=== PATIENT | male | born 1965 | race Caucasian/White ===

== ENCOUNTER 2020-01-26 07:02 | Day surgery (SDC) | payer OTHER ==
[2020-01-26] MEDS ORDERED: PROPOFOL INJ 200 MG/20 ML VIAL IV ONE (07:40)
[2020-01-26 08:53] VITALS: BP 106/72
--- NOTE | 2020-01-26 11:34 | Operative Report ---
Operative Report DATE OF SURGERY: 01/26/20 Operative Report: The risk, benefits and alternatives of the procedure including the risk of bleeding, perforation requiring surgery have been explained to the patient in detail and informed consent has been obtained. Patient is placed in the left, lateral decubital position. Timeout was called. Propofol medication is administered. Rectal examination is done which did not reveal any masses, tears or fissures. An Olympus videoscope was introduced into the patient's rectum. The scope was then carefully advanced all the way to the cecum. The cecum was identified by the usual anatomical landmarks including the ileocecal valve as well as the appendiceal office. Photodocumentation was obtained. Scope was then sequentially pulled back throughout the various segments of the colon. Retroflexion maneuver is performed. PREOPERATIVE DIAGNOSIS: Colorectal cancer screening POSTOPERATIVE DIAGNOSIS: And almost obstructive mass lesion in the sigmoid colon status post biopsy status post tattoo with submucosal Nury ink injection. Internal hemorrhoids. Biopsies obtained. Patient likely has colorectal cancer. Will need surgical evaluation OPERATION: Colonoscopy with submucosal injection. Colonoscopy with biopsy SURGEON: MELISSA CRISOSTOMO ANESTHESIA: LMAC TISSUE REMOVED OR ALTERED: As noted above. COMPLICATIONS: None. ESTIMATED BLOOD LOSS: None. INTRAOPERATIVE FINDINGS: As noted above. PROCEDURE: Patient tolerated the procedure well. No immediate postprocedure complications are noted. Patient is discharged in good condition. Discharge date 01/26/2020. Discharge diet: Regular. Discharge activity: Regular. Will need surgical referral. We will contact patient once biopsy is available. I will speak with Dr. Davila.
== END 2020-01-26 08:52 | disposition home or self-care (01) ==
LOC: END 07:02
PROVIDERS: ATTEND Internal Medicine Gastroenterology
DX: Z12.11 Encounter for screening for malignant neoplasm of colon (principal); C18.7 Malignant neoplasm of sigmoid colon; K64.8 Other hemorrhoids; F17.210 Nicotine dependence, cigarettes, uncomplicated
CPT/HCPCS: 45380; 45381; 88305 ×2; 00812; J2704; 812

== ENCOUNTER → 2020-02-05 | Outpatient (CLI) | payer OTHER ==
--- NOTE | 2020-02-05 15:57 | RADIOLOGY REPORT (SQ) ---
EXAM DESCRIPTION: CT CHEST WITH COMPLETED DATE/TIME: 02/05/2020 3:47 pm REASON FOR STUDY: C18.9 MALIGNANT NEOPLASM OF COLON, UNSPECIFIED, R63.4 ABNORMAL WEIGHT LOSS C18.9 MALIGNANT NEOPLASM OF COLON, UNSPECIFIED R63.4 ABNORMAL WEIGHT LOSS COMPARISON: None. TECHNIQUE: CT scan of the chest performed using helical scanning technique with dynamic intravenous contrast injection. Images reviewed with lung, soft tissue and bone windows. Reconstructed coronal and sagittal MPR and MIP images reviewed. All images stored on PACS. All CT scanners at this facility use dose modulation, iterative reconstruction, and/or weight based d osing when appropriate to reduce radiation dose to as low as reasonably achievable (ALARA). [facility]: Dose Right [facility]: CareDose [facility]: Dose Right [facility]: Teradose 4D [facility]: Datahero CONTRAST TYPE AND DOSE: See separate report of the same date. RENAL FUNCTION: See separate report. RADIATION DOSE: CT Rad equipment meets quality standard of care and radiation dose reduction techniq ues were employed. CTDIvol: 5.1 - 5.4 mGy. DLP: 1214 mGy-cm. . LIMITATIONS: None. FINDINGS: LUNGS AND PLEURA: No opacities, nodules, masses. No pneumothorax. No effusions. HILAR AND MEDIASTINAL STRUCTURES: No identified masses or abnormal nodes. HEART AND VASCULAR STRUCTURES: No aneurysm or dissection. No central pulmonary emboli. No pericardi al effusion. HARDWARE: None in the chest. UPPER ABDOMEN: See separate report of the CT of the abdomen. THYROID AND OTHER SOFT TISSUES: No masses. No adenopathy. BONES: No significant finding. OTHER: No other significant finding. IMPRESSION: No evidence of metastatic disease. TECHNICAL DOCUMENTATION: JOB ID: [id number] Quality ID # [id number]: Final reports with documentation of one or more dose reduction techniques (e.g., Au tomated exposure control, adjustment of the mA and/or kV according to patient size, use of iterative reconstruction technique) 2010 [employer]- All Rights Reserved Reading location - IP/workstation name: [email or web address]
--- NOTE | 2020-02-05 16:10 | RADIOLOGY REPORT (SQ) ---
EXAM DESCRIPTION: CT ABD/PELVIS WITH IV ONLY COMPLETED DATE/TIME: 02/05/2020 3:47 pm REASON FOR STUDY: C18.9 MALIGNANT NEOPLASM OF COLON, UNSPECIFIED, R63.4 ABNORMAL WEIGHT LOSS C18.9 MALIGNANT NEOPLASM OF COLON, UNSPECIFIED R63.4 ABNORMAL WEIGHT LOSS COMPARISON: None. TECHNIQUE: CT scan of the abdomen and pelvis performed using helical scanning technique with dynamic intravenous contrast injection. No oral contrast. Images reviewed with lung, soft tissue, and bone windows. Reconstructed coronal and sagittal MPR images reviewed. Delayed images for evaluation of the urinary system also acquired. All images stored on PACS. All CT scanners at this facility use dose modulation, iterative reconstruction, and/or weight based d osing when appropriate to reduce radiation dose to as low as reasonably achievable (ALARA). [facility]: Dose Right [facility]: CareDose [facility]: Dose Right [facility]: Teradose 4D [facility]: SpinGo CONTRAST TYPE AND DOSE: contrast/concentration: Isovue 350.00 mg/ml; Total Contrast Delivered: 88.0 ml; Total Saline Delivered: 70.0 ml RENAL FUNCTION: GFR > 60. RADIATION DOSE: . LIMITATIONS: None. FINDINGS: LOWER CHEST: No significant findings. No nodules or infiltrates. LIVER: 10 mm low-density lesion subdiaphragmatic right lobe segment 6 measuring 61 HU on series 3, im age 15. SPLEEN: Normal size. No focal lesions. PANCREAS: No masses. No significant calcifications. No adjacent inflammation or peripancreatic fluid collections. Pancreatic duct not dilated. GALLBLADDER: No identified stones by CT criteria. No inflammatory changes to suggest cholecystitis. ADRENAL GLANDS: No significant masses or asymmetry. RIGHT KIDNEY AND URETER: No solid masses. No significant calcifications. No hydronephrosis or hyd roureter. LEFT KIDNEY AND URETER: No solid masses. No significant calcifications. No hydronephrosis or hydr oureter. AORTA AND VESSELS: No aneurysm. No dissection. Renal arteries, SMA, celiac without stenosis. RETROPERITONEUM: No retroperitoneal adenopathy, hemorrhage or masses. BOWEL AND PERITONEAL CAVITY: Bowel wall thickening distal descending colon image 37 series 605. This may be the colon primary. No adenopathy, ascites or free air. APPENDIX: Normal. PELVIS: No mass. No free fluid. Normal bladder. ABDOMINAL WALL: No masses. No hernias. BONES: No significant or acute findings. OTHER: No other significant finding. IMPRESSION: Solitary hepatic lesion not a benign cyst. Consider MRI. TECHNICAL DOCUMENTATION: JOB ID: [id number] Quality ID # [id number]: Final reports with documentation of one or more dose reduction techniques (e.g., Au tomated exposure control, adjustment of the mA and/or kV according to patient size, use of iterative reconstruction technique) 2010 [employer]- All Rights Reserved Reading location - IP/workstation name: [email or web address]
== END ==
LOC: RAD 15:10
PROVIDERS: ATTEND Surgery
DX: C18.9 Malignant neoplasm of colon, unspecified (principal); R63.4 Abnormal weight loss; K62.5 Hemorrhage of anus and rectum; F17.200 Nicotine dependence, unspecified, uncomplicated
CPT/HCPCS: 71260; 74177; 82565

== ENCOUNTER → 2020-02-05 | Outpatient (CLI) | payer OTHER ==
[2020-02-05 17:02] LABS: ABSOLUTE BASOPHILS # (AUTO) 0.1 10^3/uL (0.0-0.2); ABSOLUTE EOSINOPHILS # (AUTO) 0.1 10^3/uL (0.0-0.6); ABSOLUTE LYMPHOCYTES (AUTO) 1.4 10^3/uL (0.5-4.7); ABSOLUTE MONOCYTES (AUTO) 0.4 10^3/uL (0.1-1.4); ABSOLUTE NEUT (AUTO) 3.9 10^3/uL (1.7-8.2); BASOPHILS % (AUTO) 0.9 % (0-2); EOSINOPHILS % (AUTO) 2.3 % (0-6); HEMATOCRIT 39.1 % (37.9-51.0); HEMOGLOBIN 13.6 g/dL (13.5-17.0); LYMPHOCYTES % (AUTO) 24.2 % (13-45); MEAN CORPUSCULAR HEMOGLOBIN 29.7 pg (27.0-33.4); MEAN CORPUSCULAR HGB CONC 34.8 g/dL (32.0-36.0); MEAN CORPUSCULAR VOLUME 85 fl (80-97); MONOCYTES % (AUTO) 6.7 % (3-13); PLATELET COUNT 159 10^3/uL (150-450); RED BLOOD COUNT 4.58 10^6/uL (4.35-5.55); RED CELL DISTRIBUTION WIDTH 13.9 % (11.5-14.0); SEGMENTED NEUTROPHILS % (AUTO) 65.9 % (42-78); TOTAL CELLS COUNTED % (AUTO) 100 %
[2020-02-05 17:20] LABS: ANION GAP 7 (5-19); BLOOD UREA NITROGEN 12 mg/dL (7-20); CARBON DIOXIDE 29 mmol/L (22-30); CHLORIDE 101 mmol/L (98-107); GLUCOSE 89 mg/dL (75-110); POTASSIUM 4.2 mmol/L (3.6-5.0)
--- NOTE | 2020-02-06 08:56 | PDOC PROGRESS REPORT ---
Subjective Progress Note for:: 02/06/20 Reason For Visit: MALIGNANT NEOPLASM OF COLON, UNSPECIFIED Physical Exam General appearance: PRESENT: no acute distress Head exam: PRESENT: normocephalic Mouth exam: PRESENT: moist Neck exam: PRESENT: full ROM Respiratory exam: PRESENT: clear to auscultation jeferson Cardiovascular exam: PRESENT: RRR Pulses: PRESENT: normal radial pulses, normal femoral pulses, normal dorsalis pedis pul Vascular exam: PRESENT: normal capillary refill GI/Abdominal exam: PRESENT: soft Rectal exam: PRESENT: deferred Extremities exam: PRESENT: full ROM Musculoskeletal exam: PRESENT: full ROM Neurological exam: PRESENT: alert, awake, oriented to person, oriented to place Psychiatric exam: PRESENT: appropriate affect Skin exam: PRESENT: dry Results Laboratory Results: 02/05/20 16:29 02/05/20 16:29 02/05/20 02/05/20 16:29 16:29 WBC 6.0 RBC 4.58 Hgb 13.6 Hct 39.1 MCV 85 MCH 29.7 MCHC 34.8 RDW 13.9 Plt Count 159 Seg Neutrophils % 65.9 Sodium 137.4 Potassium 4.2 Chloride 101 Carbon Dioxide 29 Anion Gap 7 BUN 12 Creatinine 0.95 Est GFR ( Amer) > 60 Glucose 89 Calcium 9.0 Assessment & Plan - Plan Summary Plan Summary: s/p exploratory laparotomy for sbo iwth incarcerated ventral hernia doing better this am passing flatus this am abd soft, min tenderness plan will start clears today ambulate/
== END ==
LOC: OD 16:17
PROVIDERS: ATTEND Physician Assistant Surgical
DX: C18.9 Malignant neoplasm of colon, unspecified (principal); R63.4 Abnormal weight loss; F17.200 Nicotine dependence, unspecified, uncomplicated
CPT/HCPCS: 36415; 80048; 82378; 85025

== ENCOUNTER 2020-02-06 05:23 | Inpatient (IN) | payer OTHER ==
[2020-02-06] MEDS ORDERED: CEFAZOLIN SODIUM 2 GM in DEXTROSE 5%-WATER 100 ML IV PRN (09:00)
[2020-02-06] MEDS ORDERED: METRONIDAZOLE 500 MG/NS RTU 500 MG/100 ML RTUPB IV PRN (09:01)
[2020-02-06] MEDS ORDERED: SUCCINYLCHOLINE CHLORIDE INJ 200 MG/10 ML VIAL ONE (12:00)
[2020-02-06] MEDS ORDERED: LIDOCAINE 2% INJ-PF (20 MG/ML) 2 ML AMPUL ONE (12:00)
[2020-02-06] MEDS ORDERED: DEXAMETHASONE SOD PHOSPHATE INJ 4 MG/1 ML VIAL ONE (12:00)
[2020-02-06] MEDS ORDERED: ONDANSETRON HCL INJ/PF 4 MG/2 ML SDV ONE (12:00)
[2020-02-06] MEDS ORDERED: ROCURONIUM BROMIDE INJ 50 MG/5 ML VIAL IV ONE (12:00)
[2020-02-06] MEDS ORDERED: HYDROMORPHONE HCL INJ/PF 2 MG/ML AMPULE ONE (12:16)
[2020-02-06] MEDS ORDERED: PROPOFOL INJ 200 MG/20 ML VIAL IV ONE (12:17)
[2020-02-06] MEDS ORDERED: FENTANYL CITRATE INJ/PF 100 MCG/2 ML AMPUL ONE ×2 (12:17→17:03)
[2020-02-06] MEDS ORDERED: MIDAZOLAM 2 MG/2 ML INJ ONE (12:17)
--- NOTE | 2020-02-06 12:35 | EKG REPORT ---
SEVERITY:- NORMAL ECG - SINUS RHYTHM : Confirmed by: Fabricio Cornejo MD 06-Feb-2020 12:34:51
[2020-02-06] MEDS ORDERED: SUGAMMADEX SODIUM 200 MG/2 ML SDV IV ONE (13:09)
[2020-02-06] MEDS ORDERED: METRONIDAZOLE 500 MG/NS RTU 500 MG/100 ML RTUPB IV ONE (13:09)
[2020-02-06] MEDS ORDERED: LIDOCAINE 4% INJ/PF (40 MG/ML) 5 ML AMPUL ONE (13:11)
[2020-02-06] MEDS ORDERED: BUPIVACAINE HCL 0.5 % INJ/PF 30 ML SDV ONE (14:11)
[2020-02-06] MEDS ORDERED: FENTANYL CITRATE INJ/PF 100 MCG/2 ML AMPUL IV PRN ×3 (15:38)
[2020-02-06] MEDS ORDERED: PROMETHAZINE HCL INJ 25 MG/1 ML VIAL IV PRN ×2 (15:38)
[2020-02-06] MEDS ORDERED: DIPHENHYDRAMINE HCL 50 MG/ML VIAL IV PRN (15:38)
[2020-02-06] MEDS ORDERED: MORPHINE SULFATE 10 MG/ML INJ IV PRN (15:38)
[2020-02-06] MEDS ORDERED: MEPERIDINE HCL/PF INJ 25 MG/1 ML DISP.SYRIN IV PRN (15:38)
[2020-02-06] MEDS ORDERED: GLUCAGON,HUMAN RECOMB 1 MG INJ SUBCUT PRN (17:07)
[2020-02-06] MEDS ORDERED: ONDANSETRON HCL INJ/PF 4 MG/2 ML SDV IV PRN (17:07)
[2020-02-06] MEDS ORDERED: DEXTROSE 40% GEL 15 GM TUBE PO PRN ×2 (17:07)
[2020-02-06] MEDS ORDERED: DEXTROSE 50%-WATER 25 GM/50 ML DISP.SYRIN IV PRN ×2 (17:07)
--- NOTE | 2020-02-06 17:28 | Operative Report ---
Nonrecallable Operative Report DATE OF SURGERY: 02/06/20 PREOPERATIVE DIAGNOSIS: Sigmoid colon cancer POSTOPERATIVE DIAGNOSIS: Colon cancer OPERATION: Agnostic laparoscopy is an laparoscopic sigmoid colectomy SURGEON: ALIYA SUERO 1ST SHINGLER: EKTA LANDIS ANESTHESIA: GA TISSUE REMOVED OR ALTERED: Sigmoid colon COMPLICATIONS: None ESTIMATED BLOOD LOSS: 100 cc INTRAOPERATIVE FINDINGS: No obvious peritoneal or hepatic metastasis PROCEDURE: Procedure note Patient was brought to the operating awake alert stable condition placed in the operative table supine position induced under general anesthesia and intubated. He was then placed in a low lithotomy position his abdomen was prepped and draped in usual sterile fashion. After appropriate timeout site verification the procedure commenced. A varies needle was placed into the umbilicus and the abdomen was insufflated 6 L of CO2 gas a supraumbilical 10 mm incision was made with a 15 blade and a 10 mm port placed in the abdominal cavity intra-abdominal visualization revealed no evidence of Veress needle or trocar injury. 2 5 mm ports were placed under direct vision in the right side of the abdominal wall and 1 5 mm port on the left side of the abdominal wall. We then examined the liver of both its inferior surface and its superior surface all the way up to the diaphragm on the right side as well as the left side where we identified the left hepatic lobe triangular ligament and the broad ligament on the right side. We search for any mid hepatic metastasis with that we could identify and we could not identify any. After ensuring that there was no obvious metastatic disease to biopsy in the liver we examined the peritoneal surfaces and did not see any either. We then placed the patient in Trendelenburg position for the sigmoid colectomy. The sigmoid and rectal junction was identified and was placed on traction we easily identified the colonic mass as well as the tattooing that had been previously done. We then took down the white line of Toldt along down to the peritoneal reflection distal on the left side to the distal rectum. We identified the ureter and preserved on the left side we incised the peritoneum on top of the rectum and carried that over to the right side where we identified the peritoneal reflection identified the right ureter and preserve that. We then mobilized the rectum off the sacrum with the LigaSure device to complete a mesenteric resection. We then came across the distal rectum with one firing of the Endo MAMIE stapler with a blue load to transect it. Then mobilized the rectal sigmoid mesentery on top of the aorta proximally until we reached the inferior mesenteric artery which was divided with the LigaSure device. This allowed us to completely mobilize the sigmoid colon and and rectum. Again we were always cognizant of both right and left ureters and preserve those. Once this was all mobilized we then reduce the pneumoperitoneum and made a small abdominal incision with a 15 blade below the umbilicus approximately 5 cm long where we carried that dissection down through the rectus muscle divided it and placed the Nabeel retractor. We delivered the rectosigmoid to the wound. We then incised the mesentery on the mid sigmoid with the LigaSure device all the way to the serosa of the bowel and then divided the intestine with a pursestring maker. The specimen was removed the pursestring maker was released and the distal descending colon was then opened and triangulated with Allis clamps. It and easily excepted a 29 mm anvil which was placed into the distal descending colon the pursing suture was tied down. The splenic descending colon was then returned to the abdominal cavity and the anterior incision was temporarily closed with Nabeel device then through the rectum we passed a 29 mm EEA stapler under direct vision opened it closed connected to the anvil in the distal descending colon close it fired creating a coloproctostomy. The stapler was removed the donuts were checked they were intact we placed a bowel clamp on the descending colon and then placed the patient in a flat position fill the pelvis up with saline with the anastomosis under the saline we and insufflated air into the rectum with the proctoscope and examined and and distended up the distal descending colon as well as the rectum no leak could be identified of the air bubbles. We removed the proctoscope. We then again rechecked both the right and left ureter there were intact we irrigated the pelvis with normal saline suctioned dry placed the Emmanuel-Lopes drain in the pelvis and brought out through the 5 mm port site on the left side we closed the 2 fascial defects in the right abdominal wall with 0 Vicryl and closed the midline fascia with a running double looped PDS suture #1. We then closed the skin with standard skin clips. Estimated blood loss for the procedure was less than 100 cc sponge needle counts were correct x2 the patient was awakened in the operating extubated and to recovery stable condition no complications MIN Guy was present for the entire case for help with wound retraction wound closure.
[2020-02-06] MEDS: HYDROMORPHONE HCL INJ/PF 2 MG/ML AMPULE ONE ×2 (17:48→17:58)
[2020-02-06 18:30] LABS: ANION GAP 5 (5-19); BLOOD UREA NITROGEN 13 mg/dL (7-20); CALCIUM 8.3 mg/dL (8.4-10.2); CARBON DIOXIDE 28 mmol/L (22-30); CHLORIDE 104 mmol/L (98-107); GLUCOSE 120 mg/dL (75-110); PHOSPHORUS 3.6 mg/dL (2.5-4.5); POTASSIUM 3.7 mmol/L (3.6-5.0)
--- NOTE | 2020-02-06 19:02 | EKG REPORT ---
SEVERITY:- OTHERWISE NORMAL ECG - SINUS RHYTHM VENTRICULAR PREMATURE COMPLEX LOW VOLTAGE IN FRONTAL LEADS : Confirmed by: Fabricio Cornejo MD 06-Feb-2020 19:01:01
[2020-02-06] MEDS: POTASSI CL 20 MEQ/D5-1/2NS 1L 1,000 ML IV PRN (19:28)
[2020-02-06] MEDS: MORPHINE SULFATE 10 MG/ML INJ IV PRN (20:11)
[2020-02-06] MEDS: CEFAZOLIN 1 GM/D5W RTU 1 GM/50 ML RTUPB IV SCH (20:42)
[2020-02-06] MEDS: HEPARIN SOD (PORCINE) 5,000 UNIT/ML 1 ML VIAL SUBCUT SCH (21:53)
[2020-02-06] MEDS: METRONIDAZOLE 500 MG/NS RTU 250 MG in CONTAINER,EMPTY 1 EACH IV SCH (21:54)
[2020-02-06] MEDS: FAMOTIDINE INJ/PF 20 MG/2 ML SDV IV SCH (21:54)
[2020-02-07] MEDS: CEFAZOLIN 1 GM/D5W RTU 1 GM/50 ML RTUPB IV SCH ×4 (02:38→21:40)
[2020-02-07] MEDS: HEPARIN SOD (PORCINE) 5,000 UNIT/ML 1 ML VIAL SUBCUT SCH ×3 (05:49→21:42)
[2020-02-07] MEDS: POTASSI CL 20 MEQ/D5-1/2NS 1L 1,000 ML IV PRN ×3 (05:51→21:55)
[2020-02-07] MEDS: METRONIDAZOLE 500 MG/NS RTU 250 MG in CONTAINER,EMPTY 1 EACH IV SCH ×3 (05:51→21:42)
[2020-02-07 06:11] LABS: HEMATOCRIT 36.7 % (37.9-51.0); HEMOGLOBIN 12.7 g/dL (13.5-17.0); MEAN CORPUSCULAR HEMOGLOBIN 29.4 pg (27.0-33.4); MEAN CORPUSCULAR HGB CONC 34.6 g/dL (32.0-36.0); MEAN CORPUSCULAR VOLUME 85 fl (80-97); PLATELET COUNT 158 10^3/uL (150-450); RED BLOOD COUNT 4.32 10^6/uL (4.35-5.55); RED CELL DISTRIBUTION WIDTH 13.5 % (11.5-14.0); WHITE BLOOD COUNT 11.3 10^3/uL (4.0-10.5)
[2020-02-07 06:27] LABS: ANION GAP 8 (5-19); BLOOD UREA NITROGEN 9 mg/dL (7-20); CALCIUM 8.4 mg/dL (8.4-10.2); CARBON DIOXIDE 24 mmol/L (22-30); CHLORIDE 105 mmol/L (98-107); GLUCOSE 145 mg/dL (75-110); POTASSIUM 4.1 mmol/L (3.6-5.0)
[2020-02-07 06:51] LABS: ABSOLUTE LYMPHOCYTES# (MANUAL) 0.1 10^3/uL (0.5-4.7); ABSOLUTE MONOCYTES # (MANUAL) 0.6 10^3/uL (0.1-1.4); BASOPHILS % (MANUAL) 0 % (0-2); EOSINOPHILS % (MANUAL) 0 % (0-6); LYMPHOCYTES % (MANUAL) 1 % (13-45); MONOCYTES % (MANUAL) 5 % (3-13); SEGMENTED NEUTROPHILS % (MAN) 94 % (42-78); TOTAL CELLS COUNTED 100
[2020-02-07 06:55] LABS: OVALOCYTES SLIGHT; PLATELET COMMENT ADEQUATE; SCHISTOCYTES SLIGHT
--- NOTE | 2020-02-07 07:44 | PDOC PROGRESS REPORT ---
Subjective Progress Note for:: 02/07/20 Subjective:: c/o incisional pain Reason For Visit: MALIGNANT NEOPLASM OF COLON, UNSPECIFIED Physical Exam Vital Signs: Temp Pulse Resp BP Pulse Ox 97.9 F 78 12 103/68 100 02/07/20 00:10 02/07/20 00:10 02/07/20 00:10 02/07/20 00:10 02/07/20 00:10 Intake & Output 02/06/20 02/07/20 02/08/20 06:59 06:59 06:59 Intake Total 6270 Output Total 3330 Balance 2940 Weight 77.11 kg 77.11 kg General appearance: PRESENT: no acute distress Head exam: PRESENT: atraumatic Ear exam: PRESENT: normal external ear exam Mouth exam: PRESENT: dry mucosa Neck exam: PRESENT: full ROM Respiratory exam: PRESENT: clear to auscultation jeferson Cardiovascular exam: PRESENT: RRR Pulses: PRESENT: normal femoral pulses, normal dorsalis pedis pul GI/Abdominal exam: PRESENT: soft, other - derick min op Rectal exam: PRESENT: deferred Extremities exam: PRESENT: full ROM Musculoskeletal exam: PRESENT: full ROM Neurological exam: PRESENT: alert, awake, oriented to person, oriented to place Psychiatric exam: PRESENT: appropriate affect Skin exam: PRESENT: dry Results Laboratory Results: 02/07/20 05:57 02/07/20 05:57 02/06/20 02/06/20 02/07/20 14:45 18:02 05:57 WBC 11.3 H RBC 4.32 L Hgb 12.7 L Hct 36.7 L MCV 85 MCH 29.4 MCHC 34.6 RDW 13.5 Plt Count 158 Seg Neutrophils % Not Reportable Sodium 137.1 Potassium 3.7 Chloride 104 Carbon Dioxide 28 Anion Gap 5 BUN 13 Creatinine 0.94 Est GFR ( Amer) > 60 Glucose 120 H Calcium 8.3 L Phosphorus 3.6 Magnesium 2.0 Blood Type O POSITIVE Antibody Screen NEGATIVE 02/07/20 05:57 WBC RBC Hgb Hct MCV MCH MCHC RDW Plt Count Seg Neutrophils % Sodium 136.6 L Potassium 4.1 Chloride 105 Carbon Dioxide 24 Anion Gap 8 BUN 9 Creatinine 0.76 Est GFR ( Amer) > 60 Glucose 145 H Calcium 8.4 Phosphorus Magnesium Blood Type Antibody Screen Assessment & Plan - Plan Summary Plan Summary: pod 1 s/p sigmoid colectomy doing ok this am hct stable lytes ok plan add toradol cont landin till am out of bed clear liquids
[2020-02-07] MEDS: MORPHINE SULFATE 10 MG/ML INJ IV PRN (08:49)
[2020-02-07] MEDS: FAMOTIDINE INJ/PF 20 MG/2 ML SDV IV SCH ×2 (09:04→21:41)
[2020-02-07] MEDS: KETOROLAC TROMETHAMINE INJ/PF 30 MG/1 ML SDV IV SCH ×2 (12:45→17:28)
[2020-02-08] MEDS: KETOROLAC TROMETHAMINE INJ/PF 30 MG/1 ML SDV IV SCH ×5 (00:41→23:03)
[2020-02-08] MEDS: CEFAZOLIN 1 GM/D5W RTU 1 GM/50 ML RTUPB IV SCH ×4 (03:07→21:06)
[2020-02-08] MEDS: HEPARIN SOD (PORCINE) 5,000 UNIT/ML 1 ML VIAL SUBCUT SCH ×3 (05:10→21:44)
[2020-02-08] MEDS: METRONIDAZOLE 500 MG/NS RTU 250 MG in CONTAINER,EMPTY 1 EACH IV SCH ×3 (05:32→21:42)
[2020-02-08] MEDS: POTASSI CL 20 MEQ/D5-1/2NS 1L 1,000 ML IV PRN (05:32)
--- NOTE | 2020-02-08 08:20 | PDOC PROGRESS REPORT ---
Subjective Progress Note for:: 02/08/20 Subjective:: feels well\ passed small amt of flatus Reason For Visit: MALIGNANT NEOPLASM OF COLON, UNSPECIFIED Physical Exam Vital Signs: Temp Pulse Resp BP Pulse Ox 98.0 F 59 L 16 104/74 99 02/08/20 07:27 02/08/20 07:27 02/08/20 07:27 02/08/20 07:27 02/08/20 07:27 Intake & Output 02/07/20 02/08/20 02/09/20 06:59 06:59 06:59 Intake Total 6270 4290 Output Total 3330 2640 Balance 2940 1650 Weight 77.11 kg 78.5 kg General appearance: PRESENT: no acute distress Head exam: PRESENT: normocephalic Eye exam: PRESENT: EOMI Ear exam: PRESENT: normal external ear exam Neck exam: PRESENT: full ROM Respiratory exam: PRESENT: clear to auscultation jeferson Pulses: PRESENT: normal femoral pulses, normal dorsalis pedis pul Vascular exam: PRESENT: normal capillary refill Breast: PRESENT: Normal GI/Abdominal exam: PRESENT: soft Rectal exam: PRESENT: deferred Gentrourinary exam: PRESENT: indwelling catheter Extremities exam: PRESENT: full ROM Neurological exam: PRESENT: alert, awake, oriented to person, oriented to place Psychiatric exam: PRESENT: appropriate affect Skin exam: PRESENT: dry Results Laboratory Results: 02/07/20 05:57 02/07/20 05:57 Assessment & Plan - Plan Summary Plan Summary: pt doing well post op day 1 passes small amt of flatus wound dry derick serous plan advance diet to fulll cont ambulation poss home in am or sat.
[2020-02-08] MEDS: FAMOTIDINE INJ/PF 20 MG/2 ML SDV IV SCH ×2 (09:08→21:06)
[2020-02-08] MEDS: MORPHINE SULFATE 10 MG/ML INJ IV PRN (21:06)
[2020-02-09] MEDS: CEFAZOLIN 1 GM/D5W RTU 1 GM/50 ML RTUPB IV SCH ×2 (04:00→09:50)
[2020-02-09] MEDS: METRONIDAZOLE 500 MG/NS RTU 250 MG in CONTAINER,EMPTY 1 EACH IV SCH (05:05)
[2020-02-09] MEDS: HEPARIN SOD (PORCINE) 5,000 UNIT/ML 1 ML VIAL SUBCUT SCH (05:10)
[2020-02-09] MEDS: KETOROLAC TROMETHAMINE INJ/PF 30 MG/1 ML SDV IV SCH (05:10)
--- NOTE | 2020-02-09 08:23 | PDOC DISCHARGE SUMMARY ---
General - Admit/Disc Date/PCP Admission Date/Primary Care Provider: 02/06/20 11:39 PEARL FARMER PA-C Discharge Date: 02/09/20 - Discharge Diagnosis Final Diagnosis: sigmoid colon cancer - Assessment Summary: This a 54-year-old male who was admitted for an elective sigmoid resection on the day of admission. He underwent the procedure without complications and tolerated well. He was started on a clear liquid diet on postop day 1 which was slowly advanced to a soft diet by the time of discharge. He had a routine benign postop course. At this point he is afebrile with stable vital signs tolerating a soft diet and ready for discharge home today. He will be given instructions to return to surgical clinic in 7 to 10 days for postop follow-up. He is okay to shower avoid lifting anything greater than 10 pounds. He will take ibuprofen for pain PRN. Final diagnosis sigmoid colon cancer. - Additional Information Resuscitation Status: Full Code Discharge Diet: As Tolerated Discharge Activity: Activity As Tolerated, No Lifting Over 10 Pounds - pt needs a f/u in surgery clinic with me in 7-10 days. Referrals: [facility] [Provider Group] - 02/19/20 8:15 am Home Medications: No Home Medications 02/05/20 History of Present Illiness History of Present Illness: KIMBERLEY COTTRELL is a 54 year old male Physical Exam Vital Signs: Temp Pulse Resp BP Pulse Ox 97.7 F 63 18 126/80 H 97 02/08/20 23:12 02/08/20 23:12 02/08/20 23:12 02/08/20 23:12 02/08/20 23:12 Intake & Output 02/08/20 02/09/20 02/10/20 06:59 06:59 06:59 Intake Total 4290 3128 Output Total 2640 830 Balance 1650 2298 Weight 78.5 kg 77.8 kg Results Laboratory Results: WBC 11.3 10^3/uL (4.0-10.5) H 02/07/20 05:57 RBC 4.32 10^6/uL (4.35-5.55) L 02/07/20 05:57 Hgb 12.7 g/dL (13.5-17.0) L 02/07/20 05:57 Hct 36.7 % (37.9-51.0) L 02/07/20 05:57 MCV 85 fl (80-97) 02/07/20 05:57 MCH 29.4 pg (27.0-33.4) 02/07/20 05:57 MCHC 34.6 g/dL (32.0-36.0) 02/07/20 05:57 RDW 13.5 % (11.5-14.0) 02/07/20 05:57 Plt Count 158 10^3/uL (150-450) 02/07/20 05:57 Lymph % (Auto) Not Reportable 02/07/20 05:57 Hand % (Auto) Not Reportable 02/07/20 05:57 Eos % (Auto) Not Reportable 02/07/20 05:57 Baso % (Auto) Not Reportable 02/07/20 05:57 Absolute Neuts (auto) Not Reportable 02/07/20 05:57 Absolute Lymphs (auto) Not Reportable 02/07/20 05:57 Absolute Monos (auto) Not Reportable 02/07/20 05:57 Absolute Eos (auto) Not Reportable 02/07/20 05:57 Absolute Basos (auto) Not Reportable 02/07/20 05:57 Total Counted 100 02/07/20 05:57 Seg Neutrophils % Not Reportable 02/07/20 05:57 Seg Neuts % (Manual) 94 % (42-78) H 02/07/20 05:57 Lymphocytes % (Manual) 1 % (13-45) L 02/07/20 05:57 Monocytes % (Manual) 5 % (3-13) 02/07/20 05:57 Eosinophils % (Manual) 0 % (0-6) 02/07/20 05:57 Basophils % (Manual) 0 % (0-2) 02/07/20 05:57 Abs Neuts (Manual) 10.6 10^3/uL (1.7-8.2) H 02/07/20 05:57 Abs Lymphs (Manual) 0.1 10^3/uL (0.5-4.7) L 02/07/20 05:57 Abs Monocytes (Manual) 0.6 10^3/uL (0.1-1.4) 02/07/20 05:57 Absolute Eos (Manual) 0.0 10^3/uL (0.0-0.6) 02/07/20 05:57 Abs Basophils (Manual) 0.0 10^3/uL (0.0-0.2) 02/07/20 05:57 Platelet Comment ADEQUATE 02/07/20 05:57 Ovalocytes SLIGHT 02/07/20 05:57 Schistocytes SLIGHT 02/07/20 05:57 Sodium 136.6 mmol/L (137-145) L 02/07/20 05:57 Potassium 4.1 mmol/L (3.6-5.0) 02/07/20 05:57 Chloride 105 mmol/L (98-107) 02/07/20 05:57 Carbon Dioxide 24 mmol/L (22-30) 02/07/20 05:57 Anion Gap 8 (5-19) 02/07/20 05:57 BUN 9 mg/dL (7-20) 02/07/20 05:57 Creatinine 0.76 mg/dL (0.52-1.25) 02/07/20 05:57 Est GFR ( Amer) > 60 (>60) 02/07/20 05:57 Est GFR (MDRD) Non-Af > 60 (>60) 02/07/20 05:57 Glucose 145 mg/dL (75-110) H 02/07/20 05:57 Calcium 8.4 mg/dL (8.4-10.2) 02/07/20 05:57 Phosphorus 3.6 mg/dL (2.5-4.5) 02/06/20 18:02 Magnesium 2.0 mg/dL (1.6-2.3) 02/06/20 18:02 Blood Type O POSITIVE 02/06/20 14:45 Antibody Screen NEGATIVE 02/06/20 14:45
[2020-02-09] MEDS: FAMOTIDINE INJ/PF 20 MG/2 ML SDV IV SCH (09:50)
[2020-02-09 10:56] VITALS: BP 114/75
== END 2020-02-09 11:40 | disposition home or self-care (01) | DRG 331 ==
LOC: INOR 11:39 → EDSTATUS 14:00 → 4W 19:14
PROVIDERS: ADMIT Surgery; ATTEND Surgery
PROC: 0DTN4ZZ Resection of Sigmoid Colon, Percutaneous Endoscopic Approach (ICD-10-PCS; principal; 2020-02-06 14:00)
DX: C18.7 Malignant neoplasm of sigmoid colon (principal); F17.210 Nicotine dependence, cigarettes, uncomplicated; Z80.42 Family history of malignant neoplasm of prostate; Z80.0 Family history of malignant neoplasm of digestive organs; Z80.8 Family history of malignant neoplasm of other organs or systems
CPT/HCPCS: 36415; 80048; 83735; 840; 84100; 85025; 86850; 86900; 86901; 88309; 93005; 93010; 94799; J0330; J0690; J1100; J1170; J1885; J2250; J2270; J2405; J2704; J3010; J3480; J3490; J7060; S0028

== ENCOUNTER → 2020-04-18 | Outpatient (CLI) | payer OTHER ==
--- NOTE | 2020-04-18 10:56 | RADIOLOGY REPORT (SQ) ---
EXAM DESCRIPTION: CT CHEST WITH IMAGES COMPLETED DATE/TIME: 04/18/2020 8:13 am REASON FOR STUDY: COLON CA C18.7 MALIGNANT NEOPLASM OF SIGMOID COLON COMPARISON: 02/05/2020 TECHNIQUE: CT scan of the chest performed using helical scanning technique with dynamic intravenous contrast injection. Images reviewed with lung, soft tissue and bone windows. Reconstructed coronal and sagittal MPR and MIP images reviewed. All images stored on PACS. All CT scanners at this facility use dose modulation, iterative reconstruction, and/or weight based d osing when appropriate to reduce radiation dose to as low as reasonably achievable (ALARA). [facility]: Dose Right [facility]: CareDose [facility]: Dose Right [facility]: Teradose 4D [facility]: Helpa CONTRAST TYPE AND DOSE: See separate report of the same date. RENAL FUNCTION: GFR > 60. RADIATION DOSE: CT Rad equipment meets quality standard of care and radiation dose reduction techniq ues were employed. CTDIvol: 5.6 - 5.6 mGy. DLP: 854 mGy-cm. . LIMITATIONS: None. FINDINGS: LUNGS AND PLEURA: No opacities, nodules, masses. No pneumothorax. No effusions. HILAR AND MEDIASTINAL STRUCTURES: No identified masses or abnormal nodes. HEART AND VASCULAR STRUCTURES: No aneurysm or dissection. No central pulmonary emboli. No pericardi al effusion. HARDWARE: None in the chest. UPPER ABDOMEN: See separate report of the CT of the abdomen. THYROID AND OTHER SOFT TISSUES: No masses. No adenopathy. BONES: No significant finding. OTHER: No other significant finding. IMPRESSION: No evidence of metastatic disease. TECHNICAL DOCUMENTATION: JOB ID: [id number] Quality ID # [id number]: Final reports with documentation of one or more dose reduction techniques (e.g., Au tomated exposure control, adjustment of the mA and/or kV according to patient size, use of iterative reconstruction technique) 2010 [employer]- All Rights Reserved Reading location - IP/workstation name: [email or web address]
--- NOTE | 2020-04-18 11:11 | RADIOLOGY REPORT (SQ) ---
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 No oral contrast. Images reviewed with lung, soft tissue, and bone windows. Reconstructed coronal and sagittal MPR images reviewed. Delayed images for evaluation of the urinary system also acquired. All images stored on PACS. All CT scanners at this facility use dose modulation, iterative reconstruction, and/or weight based d osing when appropriate to reduce radiation dose to as low as reasonably achievable (ALARA). [facility]: Dose Right [facility]: CareDose [facility]: Dose Right [facility]: Teradose 4D [facility]: [employer] CONTRAST TYPE AND DOSE: contrast/concentration: Isovue 350.00 mg/ml; Total Contrast Delivered: 83.0 ml; Total Saline Delivered: 69.0 ml RENAL FUNCTION: GFR > 60. RADIATION DOSE: . LIMITATIONS: None. FINDINGS: LOWER CHEST: See separate report of the CT of the chest. LIVER: Unchanged 10 mm low-density lesion segment 6 subdiaphragmatic. SPLEEN: Normal size. No focal lesions. PANCREAS: No masses. No significant calcifications. No adjacent inflammation or peripancreatic fluid collections. Pancreatic duct not dilated. GALLBLADDER: No identified stones by CT criteria. No inflammatory changes to suggest cholecystitis. ADRENAL GLANDS: No significant masses or asymmetry. RIGHT KIDNEY AND URETER: No solid masses. No significant calcifications. No hydronephrosis or hyd roureter. LEFT KIDNEY AND URETER: No solid masses. No significant calcifications. No hydronephrosis or hydr oureter. AORTA AND VESSELS: No aneurysm. No dissection. Renal arteries, SMA, celiac without stenosis. RETROPERITONEUM: No retroperitoneal adenopathy, hemorrhage or masses. BOWEL AND PERITONEAL CAVITY: Anastomosis sigmoid colon. No ascites or adenopathy. APPENDIX: Not visualized. PELVIS: No mass. No free fluid. Normal bladder. ABDOMINAL WALL: No masses. No hernias. BONES: No significant or acute findings. OTHER: No other significant finding. IMPRESSION: Stable solitary hepatic lesion. TECHNICAL DOCUMENTATION: JOB ID: [id number] Quality ID # [id number]: Final reports with documentation of one or more dose reduction techniques (e.g., Au tomated exposure control, adjustment of the mA and/or kV according to patient size, use of iterative reconstruction technique) 2010 [employer]- All Rights Reserved Reading location - IP/workstation name: [email or web address]
== END ==
LOC: RAD 07:49
PROVIDERS: ATTEND Internal Medicine
DX: C18.7 Malignant neoplasm of sigmoid colon (principal)
CPT/HCPCS: 71260; 74177; 82565

== ENCOUNTER → 2020-07-29 | Outpatient (CLI) | payer OTHER ==
--- NOTE | 2020-07-29 08:59 | RADIOLOGY REPORT (SQ) ---
EXAM DESCRIPTION: CT ABDOMEN WITH IV ORAL CONT IMAGES COMPLETED DATE/TIME: 07/29/2020 8:15 am REASON FOR STUDY: COLON CANCER C18.7 MALIGNANT NEOPLASM OF SIGMOID COLON COMPARISON: 04/18/2020 TECHNIQUE: CT scan of the abdomen performed with intravenous and with oral contrast using helical sc anning technique with dynamic intravenous contrast injection. Images reviewed with lung, soft tissue, and bone windows. Reconstructed coronal and sagittal MPR images reviewed. Delayed images for evaluat ion of the urinary system also acquired and evaluated. All images stored on PACS. All CT scanners at this facility use dose modulation, iterative reconstruc tion, and/or weight based dosing when appropriate to reduce radiation dose to as low as reasonably ac hievable (ALARA). [facility]: Dose Right [facility]: CareDose [facility]: Dose Right [facility]: Teradose 4D [facility]: [employer] CONTRAST TYPE AND DOSE: contrast/concentration: Isovue 350.00 mmol/ml; Total Contrast Delivered: 95. 0 ml; Total Saline Delivered: 71.0 ml RENAL FUNCTION: Creatinine 1.2 RADIATION DOSE: CT Rad equipment meets quality standard of care and radiation dose reduction techniq ues were employed. CTDIvol: 7.4 - 7.4 mGy. DLP: 544 mGy-cm. . LIMITATIONS: None. FINDINGS: LOWER CHEST: No significant findings. No nodules or infiltrates. LIVER: Stable 10 mm hypodense focus within the hepatic dome (series 2, image 12). No new hepatic les ions. Normal size. No intrahepatic ductal dilation. SPLEEN: Normal size. No focal lesions. PANCREAS: No masses. No significant calcifications. No adjacent inflammation or peripancreatic fluid collections. Pancreatic duct not dilated. GALLBLADDER: Decompressed. No radiopaque stones. No pericholecystic inflammatory change. ADRENAL GLANDS: No significant masses or asymmetry. RIGHT KIDNEY AND URETER: No solid masses. No significant calcifications. No hydronephrosis or hyd roureter. LEFT KIDNEY AND URETER: No solid masses. No significant calcifications. No hydronephrosis or hydr oureter. AORTA AND VESSELS: No aneurysm. No dissection. Renal arteries, SMA, celiac without stenosis. RETROPERITONEUM: No retroperitoneal adenopathy, hemorrhage or masses. BOWEL AND PERITONEAL CAVITY: No masses or inflammatory changes. No free fluid or peritoneal masses. APPENDIX: Not visualized. ABDOMINAL WALL: No masses. No hernias. BONES: No significant or acute findings. OTHER: No other significant finding. IMPRESSION: 1. Stable 10 mm hypodense lesion within the right hepatic lobe. No other evidence of m etastatic disease within the abdomen. Of note, pelvic imaging was not performed on this scan. 2. No evidence of acute intra-abdominal process. TECHNICAL DOCUMENTATION: JOB ID: [id number] Quality ID # [id number]: Final reports with documentation of one or more dose reduction techniques (e.g., Au tomated exposure control, adjustment of the mA and/or kV according to patient size, use of iterative reconstruction technique) 2010 [employer]- All Rights Reserved Reading location - IP/workstation name: [email or web address]
== END ==
LOC: RAD 07:47
PROVIDERS: ATTEND Internal Medicine
DX: C18.7 Malignant neoplasm of sigmoid colon (principal)
CPT/HCPCS: 74160; 82565